=== PATIENT | male | born 1980 | race Caucasian/White ===

== ENCOUNTER 2025-06-16 08:12 | Outpatient (CLI) | payer SELFPAY ==
--- NOTE | ~2025-06-16 | US_ITS ---
COMPLETE ABDOMINAL ULTRASOUND Ordering provider: Gregory Garcia MD History: . Aorta Dilation . Comparison: None. FINDINGS: LIVER: Left lobe Cystic area seen measuring 0.8 x 0.6 x 1.1 cm. Otherwise, Normal size and echotextur e. No focal hepatic lesions or perihepatic fluid collections are identified. GALLBLADDER: Unremarkable. No evidence for stones, sludge, gallbladder wall thickening or pericholecy stic fluid collections. Wall thickness is 2 mm. A negative sonographic Martin's sign was noted. BILIARY DUCTS: No evidence for intra or extrahepatic biliary dilation. Common bile duct measures 3 mm in diameter which is within normal limits. PANCREAS: Normal echotexture and size of the visualized portions. SPLEEN: Normal size, echotexture and contour and measures 11.6 cm in length. KIDNEYS: Right measures 10.2x 4x 5.2 cm in length and the left 11x 4.5x 5.2 cm in length. There is no evidence for hydronephrosis, solid renal mass, renal calculi or perinephric fluid collections. No re nal cysts. UPPER ABDOMINAL AORTA: Normal in caliber. Proximal aorta measures 2.2x 2.8 cm. The mid measures 1.9x 2.2 cm. The distal measures 1.9 cm. The right iliac artery measures 0.9 cm. The left measures 0.7 cm. IVC: Patent. FREE FLUID: None. IMPRESSION: Small cystic area in the liver. Otherwise, Unremarkable complete ultrasound of the abdome n. Reviewed, dictated and finalized at location A. IMPRESSION: Small cystic area in the liver. Otherwise, Unremarkable complete ul trasound of the abdomen.
== END 2025-06-16 08:13 | disposition home or self-care (01) ==
PROVIDERS: PCP Emergency Medicine; Visit Provider Emergency Medicine
DX: K76.89 Other specified diseases of liver (principal); R16.0 Hepatomegaly, not elsewhere classified; I77.811 Abdominal aortic ectasia
CPT/HCPCS: 76700